=== PATIENT | female | born 1965 | race Caucasian/White ===

== ENCOUNTER → 2020-04-27 | Outpatient (CLI) | payer OTHER ==
[~2020-04-27] MED LIST: AMITRIPTYLINE H25 M2 PO; HYDROCODON-ACE1 EAC8 PO; IMITREX 25 MG T25 M1 PO; IMITREX 50 MG T50 M1 PO; IMITREX100 MG PO; INDERAL 20 MG T20 M1 PO; JINTELI 1 MG-51 EACH PO; TOPAMAX 25 MG T25 M1 PG; TOPAMAX PO; TOPAMAX50 MG PO
== END ==
LOC: CAT 12:16
PROVIDERS: ATTEND Nurse Practitioner
DX: Z13.6 Encounter for screening for cardiovascular disorders (principal); I25.10 Atherosclerotic heart disease of native coronary artery without angina pectoris; E78.00 Pure hypercholesterolemia, unspecified